=== PATIENT | female | born 2005 | race Caucasian/White ===

== ENCOUNTER 2024-02-06 16:36 | Emergency (ER) | payer OTHER, SELFPAY ==
[2024-02-06 16:38] VITALS: BP 158/103
[2024-02-06] MEDS: TORADOL 15 MG IM (18:35)
--- NOTE | 2024-02-06 19:32 | ED.GENMED ---
History of Present Illness
General
Chief Complaint: Back Pain
Time Seen by Provider: 02/06/24 17:53
History of Present Illness
History of Present Illness:
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 Patient reports symptoms for the past week. Denies known inciting injury or trauma. Reports the pain is midline.
Notes that she has had issues with chronic back pain in the past, however that is usually in quality. Denies numbness or tingling to her extremities. Denies issues with urination or defecation. Denies fever or systemic symptoms. She has tried
Tylenol, Motrin, without relief of symptoms. She denies chest pain or difficulty breathing. She denies abdominal pain or GI symptoms. Does note that she had an MRI in 2019 that showed some herniated disks in T10-T11, as well as cervical spine.
She denies additional medical complaints
Phy Exam
Physical Exam
Physical Exam:
General: Well-appearing, no clinical signs of dehydration, nontoxic and in no acute distress
HEENT: protecting airway
Neck: appears supple
CV: Normal heart rate, regular rhythm
Resp: No accessory muscle use, no increased work of breathing, lungs clear to auscultation bilaterally
Abd: No distention
Extremities: No deformities, no swelling, no erythema. Mild tenderness to the lower thoracic and upper lumbar spine. No step-offs
Neuro: alert, no focal neurologic deficit
: deferred
Rectal: deferred
Psych: Normal affect
Skin: Intact
Course
Orders/Labs/Results
Orders:
Orders
02/06/24 18:14
Ketorolac [Toradol] 15 mg IM NOW STA
Lumbar Spine Complete, 4 View [CR Lumbar Spine Comp Min 4 Vw*] Urgent
Comment:
Reason For Exam: midline pain
Thoracic Spine 3 Views CR [CR Thoracic Spine 3 Views] Urgent
Comment:
Reason For Exam: midline lower thoracic pain
Vital Signs
Initial and Last Documented VS:
Initial Vital Signs
Temp Pulse BP Pulse Ox
98.3 F 105 158/103 99
02/06/24 16:38 02/06/24 16:38 02/06/24 16:38 02/06/24 16:38
Last Documented Vital Signs
Temp Pulse BP Pulse Ox
98.3 F 105 158/103 99
02/06/24 16:38 02/06/24 16:38 02/06/24 16:38 02/06/24 16:38
MDM/Problems Addressed
MDM/Problems Addressed:
18-year-old female with history of hypermobile Mary-Danlos syndrome presenting for back pain. Vital signs are normal.
Patient is resting comfortably on exam, no acute distress. Appear most consistent with musculoskeletal etiology. Do not suspect any concerning etiology to patient's presenting symptoms. Do not suspect any spinal fracture in the absence of any
direct trauma. No fever, systemic symptoms, without concern for spinal abscess or infection. No red flag such as bowel or bladder incontinence, focal weakness, or any sensory deficits on exam, without present concern for spinal compression. Given
midline tenderness, will obtain x-ray imaging for further evaluation. Toradol administered for pain.
19:30 - Patient notes some symptom improvement after Toradol. X-rays without acute fracture or malalignment. Continue to suspect musculoskeletal strain. Feel stable for discharge with continued outpatient supportive therapy. Will provide
prescription for Toradol, cautioned not to use NSAIDs with Toradol, lidocaine patch, Medrol dose. Return precautions discussed and patient verbalized understanding
*Critical Care Note
Total Time (30-74mins, 75-104mins- exclusive of procedures): Not Applicable
ED Attending Note
-
Portions of this chart may have been created with voice recognition software.� Occasional wrong word or��sound alike� substitutions may have occurred due to the inherent limitations of voice recognition software.
Discharge Plan
Departure
Referrals:
UNKNOWN - PT DOES,NOT KNOW [Family Provider] -
Interventions
Interventions:
*Risk Screen - Suicide Last Done: 02/06/24 16:49
*General Assessment Last Done: 02/06/24 16:47
*Neglect/Abuse Screening Last Done: 02/06/24 16:49
*ED COVID-19 Vaccine History Last Done: 02/06/24 16:47
ED-Musculoskeletal Assessment Last Done: 02/06/24 17:40
Discharge Date and Time
Print Language: DIVEHI
[2024-02-06 20:21] VITALS: BP 136/84
== END 2024-02-06 20:26 | disposition home or self-care (01) ==
LOC: EMR 16:36
PROVIDERS: EMERGENCY PHYSICIAN Student in an Organized Health Care Education/Training Program
DX: M54.9 Dorsalgia, unspecified (principal); G89.29 Other chronic pain; Q79.62 Hypermobile Ehlers-Danlos syndrome
CPT/HCPCS: 96372; 99284; 72072; 72110

== ENCOUNTER 2024-08-01 13:04 | Emergency (ER) | payer OTHER, SELFPAY ==
[2024-08-01 13:14] VITALS: BP 143/89
[2024-08-01 14:08] VITALS: BP 130/79
--- NOTE | 2024-08-01 14:24 | ED.MUSCINJ ---
HPI-Injury
General
Chief Complaint: Musculo-Skeletal Complaint
Source: patient
Exam Limitations: none
Time Seen by Provider: 08/01/24 14:13
Nursing documentation reviewed up to this point in time: agreed with
History of Present Illness-Injury
Initial Injury comments:
18 yo female states she dropped her laptop onto her left great toe 2 days ago.
Past History
Past History
ED Past Medical History: Other (Mary-Danlos, depression GERD)
Social History
Tobacco: Non-smoker
Alcohol: None
Personal: Single
Employment: Student
Review of Systems
Review of Systems
Allergies reviewed?: Yes
All Other Systems: ROS reviewed and negative except as documented in HPI and ROS
Musculoskeletal: Reports other (pain right great toe)
Phy Exam
Physical Exam
Physical Exam:
PHYSICAL EXAMINATION:
General: no apparent distress, not acutely ill
Neuro: alert and oriented.
Psychiatric: well kept. interactive and cooperative
Musculoskeletal: Tender about the base of the right great toe, minimal swelling, toe is warm with good capillary refill. Moves with ease
Skin: Warm, pink. Mild abrasion dorsum of right great toe
Injury Course
Orders/Labs/Results
Orders:
Orders
08/01/24 13:18
Foot, Left 3 View [CR Foot - Left Min 3 Views] Urgent
Comment:
Reason For Exam: left foot injury at base of great toe
MDM/Problems Addressed
Differential Diagnosis Includes:
contusion vs fracture
MDM/Problems Addressed:
18 yo female states she dropped her laptop onto her left great toe 2 days ago.
Xray left foot: No fracture.
Pt ambulated out with normal gait.
*Critical Care Note
Total Time (30-74mins, 75-104mins- exclusive of procedures): Not Applicable
ED Attending Note
-
Portions of this chart may have been created with voice recognition software.� Occasional wrong word or��sound alike� substitutions may have occurred due to the inherent limitations of voice recognition software.
Discharge Plan
Departure
Patient Disposition: Home (Routine Discharge)
Date of Disposition: 08/01/24
Time of Disposition: 14:23
Patient with high blood pressure during this ER visit?: No
Condition: Good
Discharge Problem:
Contusion, toe
Instructions: Contusion (DC), Using Cold for Pain
Prescriptions:
No Action
ketorolac 10 mg tablet
10 mg PO Q8H 4 Days Qty: 12 0RF
lidocaine 4 % adhesive patch,medicated
1 patch topical BID PRN (Reason: Pain) Qty: 10 0RF
methylprednisolone [Medrol (Elton)] 4 mg tablets,dose pack
See Rx Instructions .ROUTE .COMPLEX Qty: 21 0RF
Rx Instructions:
for 6 days
fexofenadine 180 mg Tablet
180 mg PO DAILY
cyproheptadine 2 mg/5 mL Syrup
2 mg PO DAILY
pantoprazole 40 mg Tablet,Delayed Release (Dr/Ec)
40 mg PO DAILY
norelgestromin-ethin.estradiol [Xulane] 150-35 mcg/24 hr Patch Weekly
1 patch TRANSDERMAL Q7D
Activity Restrictions/Additional Instructions:
Your xray shows nothing broken.
Interventions
Interventions:
*Risk Screen - Suicide Last Done: 08/01/24 14:09
*General Assessment Last Done: 08/01/24 14:09
*Neglect/Abuse Screening Last Done: 08/01/24 14:09
*ED- Fall Risk Assessment Last Done: 08/01/24 14:05
*ED COVID-19 Vaccine History Last Done: 08/01/24 14:05
*Nursing Disposition Last Done: 08/01/24 14:31
ED-Musculoskeletal Assessment Last Done: 08/01/24 14:09
Discharge Date and Time
Discharge Date/Time: 08/01/24 14:37
Print Language: MACANESE
== END 2024-08-01 14:37 | disposition home or self-care (01) ==
LOC: EMR 13:04
PROVIDERS: EMERGENCY PHYSICIAN Emergency Medicine
DX: S90.112A Contusion of left great toe without damage to nail, initial encounter (principal); W20.8XXA Other cause of strike by thrown, projected or falling object, initial encounter
CPT/HCPCS: 99283; 73630

== ENCOUNTER 2024-10-22 09:22 | Emergency (ER) | payer OTHER, SELFPAY ==
[2024-10-22 09:24] VITALS: BP 123/98
--- NOTE | 2024-10-22 11:07 | ED.MUSCINJ ---
HPI-Injury
General
Chief Complaint: Musculo-Skeletal Complaint
Source: patient
Exam Limitations: none
Time Seen by Provider: 10/22/24 10:59
History of Present Illness-Injury
Initial Injury comments:
18-year-old female presents with atraumatic pain to the posterior right thigh over the past week that has been getting worse. She has a history of hypermobile Mary-Danlos syndrome as well as asthma. She wears a control patch. No recent
travel or surgery. No chest pain or shortness of breath. No fevers. No associated back pain
Past History
Past History
ED Past Medical History: Other (Mary-Danlos, depression GERD)
Social History
Tobacco: Non-smoker
Alcohol: None
Personal: Single
Employment: Student
Phy Exam
Physical Exam
Physical Exam:
General: Well-appearing female no acute distress
Musculoskeletal exam: Patient is tender over the posterior thigh right leg. She has increased pain with stretching the hamstring. There is no skin changes overlying.
Vascular: 2+ DP pulse right foot the calf is not swollen or tender
Injury Course
Orders/Labs/Results
Orders:
Orders
10/22/24 11:07
Venous Doppler Lwr Ext Rt [US Periph Venous LOWER Ext RT] Urgent
Comment:
Reason For Exam: pain in thigh
MDM/Problems Addressed
Differential Diagnosis Includes:
Right thigh pain. Consider hamstring strain versus radiculopathy versus DVT
Venous ultrasound pending
*Pulse Oximetry
SaO2: 98
Oxygen Mode of Delivery: Room air
Patient hypoxic: no
*Critical Care Note
Total Time (30-74mins, 75-104mins- exclusive of procedures): Not Applicable
Update Note
Update Note:
Venous ultrasound negative for DVT. Patient reassured. Suspect hamstring strain. Stable for discharge
ED Attending Note
-
Portions of this chart may have been created with voice recognition software.� Occasional wrong word or��sound alike� substitutions may have occurred due to the inherent limitations of voice recognition software.
Discharge Plan
Departure
Patient Disposition: Home (Routine Discharge)
Date of Disposition: 10/22/24
Time of Disposition: 13:21
Patient with high blood pressure during this ER visit?: No
Discharge Problem:
Hamstring strain
Instructions: Muscle and Bone Pain (DC)
Prescriptions:
No Action
ketorolac 10 mg tablet
10 mg PO Q8H 4 Days Qty: 12 0RF
lidocaine 4 % adhesive patch,medicated
1 patch topical BID PRN (Reason: Pain) Qty: 10 0RF
methylprednisolone [Medrol (Elton)] 4 mg tablets,dose pack
See Rx Instructions .ROUTE .COMPLEX Qty: 21 0RF
Rx Instructions:
for 6 days
fexofenadine 180 mg Tablet
180 mg PO DAILY
cyproheptadine 2 mg/5 mL Syrup
2 mg PO DAILY
pantoprazole 40 mg Tablet,Delayed Release (Dr/Ec)
40 mg PO DAILY
norelgestromin-ethin.estradiol [Xulane] 150-35 mcg/24 hr Patch Weekly
1 patch TRANSDERMAL Q7D
Referrals:
NONE,* [Family Provider, Internal Medicine]
Activity Restrictions/Additional Instructions:
Continue with warm compresses. Continue with ibuprofen or Tylenol for pain. Return if worse otherwise follow-up with your doctor
Interventions
Interventions:
*Risk Screen - Suicide Last Done: 10/22/24 09:26
*Neglect/Abuse Screening Last Done: 10/22/24 09:26
ED-Musculoskeletal Assessment Last Done: 10/22/24 11:14
Discharge Date and Time
Print Language: TAJIK
== END 2024-10-22 14:05 | disposition home or self-care (01) ==
LOC: EMR 09:22
PROVIDERS: EMERGENCY PHYSICIAN Emergency Medicine
DX: S76.911A Strain of unspecified muscles, fascia and tendons at thigh level, right thigh, initial encounter (principal); X58.XXXA Exposure to other specified factors, initial encounter; M79.651 Pain in right thigh; Q79.62 Hypermobile Ehlers-Danlos syndrome; F32.A Depression, unspecified; K21.9 Gastro-esophageal reflux disease without esophagitis
CPT/HCPCS: 99284; 93971